=== PATIENT | female | born 1990 | race Caucasian/White ===

== ENCOUNTER 2018-01-03 12:07 | Emergency (ER) | payer SELFPAY ==
--- NOTE | 2018-01-03 12:42 | UC ---
Skin Complaint HPI - HPI Summary HPI Summary: Patient presents complaining of a two-week hx worsening rash to her face plus now 2 smaller spots on her right arm. She's been applying [id number] Lotrimin with no relief. She admits that when it began on the side of her right nare it was crusty. But now all spots are circular with some scaling around the edges. There is no associated fever. No other family members have the rash. She feels fine otherwise. - History of Current Complaint Time Seen by Provider: 01/03/18 12:29 Stated Complaint: SKIN CONCERN Hx Obtained From: Patient Onset/Duration: Gradual Onset Timing: Constant Aggravating Factor(s): Nothing Alleviating Factor(s): Nothing Associated Signs & Symptoms: Positive: Rash. Negative: Fever - Allergy/Home Medications Allergies/Adverse Reactions: Allergies Allergy/AdvReac Type Severity Reaction Status Date / Time No Known Allergies Allergy Verified 01/03/18 12:44 Home Medications: Home Medications Clotrimazole 1% TOPICAL (NF) [Lotrimin 1% TOPICAL (NF)] 1 applic TOPICAL SEE INSTRUCTIONS PRN 01/03/18 [History Confirmed 01/03/18] Review of Systems Constitutional: Negative Skin: Rash Eyes: Negative ENT: Negative Respiratory: Negative Cardiovascular: Negative Gastrointestinal: Negative Genitourinary: Negative Motor: Negative Neurovascular: Negative Musculoskeletal: Negative Neurological: Negative Psychological: Negative Is Patient Immunocompromised?: No All Other Systems Reviewed And Are Negative: Yes PMH/Surg Hx/FS Hx/Imm Hx Previously Healthy: Yes - Family History Known Family History: Positive: None - Social History Lives: With Family - Immunization History Vaccination Up to Date: Yes Physical Exam Triage Information Reviewed: Yes Appearance: Well-Appearing Vital Signs Reviewed: Yes Eyes: Positive: Conjunctiva Inflamed ENT: Positive: Pharynx normal, TMs normal, Other - No auricular adenopathy. Negative: Nasal congestion, Nasal drainage Neck: Positive: Supple, Nontender, No Lymphadenopathy Respiratory: Positive: Lungs clear, Normal breath sounds Cardiovascular: Positive: RRR, No Murmur Abdomen Description: Positive: Nontender, No Organomegaly Bowel Sounds: Positive: Present Musculoskeletal: Positive: ROM Intact, No Edema Neurological: Positive: Alert Psychological: Positive: Age Appropriate Behavior Skin Exam: Normal - There is a 50cent size area of rash involving center of upper lip extending around each nare. The surface in shiny from otc tx but edges are little red and crusty. There is a second 4mm circular spot on R jaw that is pink and 3rd 4mm spot R arm that is pink and weepy. None are streaking. No auricular, cervical or epitrochlear adenopathy or streaking. Course/Dx - Course Course Of Treatment: She is patient is nontoxic, has no fever or purulent drainage. The smaller circular pink areas look most consistent with a fungal infection; however, the crusting on her face and weeping on the right elbow raises concern for secondary infection-specifically impetigo. I'm going to discontinue her [id number] antifungal cream and start her on ketoconazole plus and topical antibiotic ointment-Bactroban. I'm also giving her a referral to dermatology and I strongly encouraged her to call today to make that follow- up appointment to be rechecked in one week or sooner for worse. - Diagnoses Provider Diagnoses: Acute rash to face and R arm. Discharge - Sign-Out/Discharge Documenting (check all that apply): Patient Departure All imaging exams completed and their final reports reviewed: No Studies - Discharge Plan Condition: Stable Disposition: HOME Prescriptions: Ketoconazole 2 % CREAM (NF) [Nizoral 2% CREAM (NF)] 1 applic TOPICAL BID 14 Days #1 tube Mupirocin 2% OINT* [Bactroban 2 % Oint*] 1 applic TOPICAL BID 7 Days #1 tube Patient Education Materials: Impetigo (ED), Skin Yeast Infection (ED) Referrals: Paradise Melara MD [Primary Care Provider] - If Needed Elliot Ortega MD [Medical Doctor] - 7 Days Additional Instructions: STOP THE LOTRIMIN CREAM. APPLY THE KETOCONAZOLE CREAM FIRST THEN THE BACTROBAN OINTMENT ON TOP OF THAT. - Billing Disposition and Condition Condition: STABLE Disposition: Home
[2018-01-03 12:49] VITALS: BP 103/61
== END 2018-01-03 12:58 | disposition home or self-care (01) ==
LOC: UCCORT 12:07
DX: R21 Rash and other nonspecific skin eruption (principal)
CPT/HCPCS: 99202; G0463